=== PATIENT | female | born 1935 | race Caucasian/White ===

== ENCOUNTER 2019-09-11 18:12 | Inpatient (IN) | payer MEDICARE, OTHER ==
[~2019-09-11] VITALS: Ht 170.2 cm; Wt 128.7 kg
--- NOTE | 2019-09-11 19:12 | PHYS DOC ---
Past History Past Medical History: Anxiety, Dementia, Hypothyroid Alcohol Use: None Adult General Chief Complaint Chief Complaint: ALTERED MENTAL STATUS HPI HPI Patient is a 84 year old female who presents with increased altered mental status. Patient has a history of dementia and at baseline is disoriented. states that she has been having bowel and bladder incontinence that has progressively gotten worse. He states that over the last few days she has been eating her own feces. He has not been able to take care of her due to agitation and confusion. He denies any kind of fevers. They were sent here by primary ca re for evaluation and admission. Review of Systems Review of Systems Unable to obtain due to dementia Allergies Allergies Allergies Coded Allergies Type Severity Reaction Last Updated Verified Penicillins Allergy Unknown 09/11/19 Yes Physical Exam Physical Exam General: Awake, alert, NAD. Well Nourished, well hydrated. Cooperative HEENT: Atraumatic, EOMI, PERRL, airway patent, moist oral mucosa Neck: Supple, trachea midline Respiratory: CTA bilaterally, normal effort, no wheezing/crackles CV: RRR, no murmur, cap refill <2 GI: Soft, nondistended, nontender, no masses MSK: No obvious deformities Skin: Warm, dry, intact Neuro: Disoriented, speech limited, sensory and motor grossly intact, no focal deficits Psych: Normal affect, confused Current Patient Data Vital Signs Vital Signs Date Time Temp Pulse Resp B/P (MAP) Pulse Ox O2 Delivery O2 Flow Rate FiO2 09/11/19 18:15 97.6 75 20 159/78 (105) 94 Room Air EKG EKG [] Radiology/Procedures Radiology/Procedures [] Impressions: Altered mental status, dementia Course & Med Decision Making Course & Med Decision Making Pertinent Labs and Imaging studies reviewed. (See chart for details) Patient is an 84-year-old female who presents to the emergency room with increased altered mental status. Patient has known dementia. Differential diagnosis includes worsening of dementia, acute psychosis, infection, electro lyte changes. Basic labs were ordered. Patient was discussed with her primary care physician who will admit her for further evaluation. Dragon Disclaimer Dragon Disclaimer This electronic medical record was generated, in whole or in part, using a voice recognition dictation system. Departure Departure: Impression: Primary Impression: Altered mental status Additional Impression: Dementia Disposition: ADMITTED INPATIENT Condition: STABLE Justification of Admission: Justification of Admission: Justification of Admission Dx: Yes Problem Qualifiers JORGE ALBERTO PAYNE MD Sep 11, 2019 19:12
[2019-09-11 19:26] LABS: BASO % 0 % (0-3); EOS % 0 % (0-3); HEMOGLOBIN 12.3 g/dL (12.0-15.5); LYMPH # 1.2 x10^3/uL (1.0-4.8); LYMPH % 18 % (24-48); MEAN CORPUSCULAR HEMOGLOBIN 30 pg (25-35); MEAN CORPUSCULAR HGB CONC 32 g/dL (31-37); MEAN CORPUSCULAR VOLUME 92 fL (79-100); MONO # 0.4 x10^3/uL (0.0-1.1); MONO % 6 % (0-9); NEUT % 75 % (31-73); PLATELET COUNT 235 x10^3/uL (140-400); RED BLOOD COUNT 4.12 x10^6/uL (3.50-5.40); RED CELL DISTRIBUTION WIDTH 14.5 % (11.5-14.5); WHITE BLOOD COUNT 6.6 x10^3/uL (4.0-11.0)
[2019-09-11 19:32] LABS: CALCIUM 9.2 mg/dL (8.5-10.1); CREATININE 1.5 mg/dL (0.6-1.0); GFR 33.1; POTASSIUM 4.5 mmol/L (3.5-5.1)
[2019-09-11 19:39] LABS: CLARITY,URINE HAZY; COLOR,URINE YELLOW
[2019-09-11 19:40] LABS: BACTERIA,URINE MOD /HPF (0-FEW); BILIRUBIN,URINE NEG (NEG); GLUCOSE,URINE NEG (NEG); HYALINE CASTS, URINE FEW /HPF; NITRITE,URINE NEG (NEG); SQUAMOUS EPITHELIAL CELL,UR MOD /LPF; TOTAL BILIRUBIN 0.2 mg/dL (0.2-1.0); TOTAL PROTEIN 6.1 g/dL (6.4-8.2); WBC,URINE 20-40 /HPF (0-4)
--- NOTE | 2019-09-11 20:30 | NUR ---
The patient, TESSA ARAIZA, 84 y/o, F admitted by VANIA FERRARA MD, was given written information regarding hospital policies, unit procedures and contact persons. Pt assisted onto the unit by EMS personnel and nursing groundskeeper supervisor via [facility]. Pt transferred from rclyo to bed with x3 asssit. Pt's reports that pt is unable to ambulate. reports that pt has become increasingly more confused/agitated of the past couple of days. Pt is confused and impulsive at this time. Pt just smiles at staff when asked assessment questions. Valuables were checked and left in room with pt, four medication bottle and tube of nystatin cream placed in medication room. Bed alarm placed for pt safety.
[2019-09-11 20:36] VITALS: BP 151/68
[2019-09-11] MEDS ORDERED: LEVO112T4 PO (20:40)
[2019-09-11] MEDS ORDERED: TRAZ-120 PO (20:40)
[2019-09-11] MEDS ORDERED: PARO20TA99 PO (20:40)
[2019-09-11] MEDS ORDERED: NYST15CR TP (20:40)
[2019-09-11] MEDS ORDERED: PRED20TA PO (20:40)
[2019-09-11] MEDS: NYSTATIN 100,000 UNIT/GM TOPICAL CREAM 15GM TUBE. TP SCH (21:00)
[2019-09-11] MEDS: traZODone 50 MG TABLET. PO SCH (21:20)
[2019-09-11 23:15] VITALS: BP 144/74
--- NOTE | 2019-09-12 03:37 | NUR ---
Rounds completed @301. This RN went to round on the pts again @324. Pt found laying on the ground next to the bed, with brief stripped off and attempting to pull gown off. When pt saw this RN, she smiled and waved. Pt assessed and no noted injuries. Vitals assessed and stable. Pt assisted back into bed with x4 assist. Bed alarm and chair alarm in place. Addendum: 09/12/19 at 0402 by GOVIND BRINK RN Dr. Ruggiero notified @3057, no new orders at this time.
[2019-09-12 03:39] VITALS: BP 167/75
[2019-09-12] MEDS: LEVOTHYROXINE 112 MCG TABLET PO SCH (05:20)
[2019-09-12 05:59] VITALS: BP 166/66
[2019-09-12] MEDS: NYSTATIN 100,000 UNIT/GM TOPICAL CREAM 15GM TUBE. TP SCH ×3 (09:00→21:00)
[2019-09-12] MEDS ORDERED: predniSONE 20 MG TABLET PO SCH (09:00)
[2019-09-12] MEDS: LACTOBACILLUS RHAMNOSUS GG 1 CAPSULE. PO SCH ×2 (09:10→21:11)
[2019-09-12] MEDS: PARoxetine 20 MG TABLET PO SCH (09:10)
--- NOTE | 2019-09-12 10:27 | RAD ---
EXAM: Chest, 2 views. HISTORY: Mental status changes. COMPARISON: None. FINDINGS: 2 views of the chest are obtained. There is no infiltrate, pleural effusion or pneumothorax. The heart is normal in size. IMPRESSION: No acute pulmonary finding. Electronically signed by: Cathi Livingston MD (09/12/2019 10:24 AM) [id number]
[2019-09-12 11:28] VITALS: BP 135/75
--- NOTE | 2019-09-12 15:40 | NUR ---
Pt has been restless, disorganized, and confused, disrobing, attempting to ambulate unassisted. Pt appears to have expressive aphasia. She will also babble at times. Pt has been pulling at her IV requiring frequent redirection and often staff sitting with her 1:1. She is not able to feed herself however with prompting such as "take a drink." She is able to sip from a straw or be fed with utensils. Dr. Bahman vásquez. new order for ativan 0.5mg q 2 hours PRN. 0.5mg ativan @ . consult Dr. Martinez. SCIENTOLOGIST currently at pts bedside providing comfort, emotional support, safety, and redirection. Addendum: 09/12/19 at 1723 by ROXIE LYNN RN 0.5mg ativan q2 hours prn, 0.5mg ativan q 8 hours scheduled, consult dr. Martinez.
[2019-09-12] MEDS: LORazepam 0.5 MG TABLET PO PRN ×2 (16:05→19:27)
[2019-09-12 16:17] VITALS: BP 174/90
[2019-09-12 19:25] VITALS: BP 144/72
[2019-09-12] MEDS: traZODone 50 MG TABLET. PO SCH (21:11)
[2019-09-12] MEDS: CEFDINIR 300 MG CAPSULE PO SCH (21:11)
[2019-09-12] MEDS: LORazepam 0.5 MG TABLET PO SCH (22:00)
[2019-09-12 22:38] VITALS: BP 170/84
[2019-09-13] MEDS: LORazepam 0.5 MG TABLET PO SCH ×3 (05:54→20:14)
[2019-09-13] MEDS: LEVOTHYROXINE 112 MCG TABLET PO SCH (05:54)
[2019-09-13 06:00] VITALS: BP 168/73
[2019-09-13] MEDS: NYSTATIN 100,000 UNIT/GM TOPICAL CREAM 15GM TUBE. TP SCH ×3 (09:00→20:14)
[2019-09-13] MEDS ORDERED: AZITHROMYCIN 250 MG TABLET. PO SCH (09:00)
--- NOTE | 2019-09-13 10:05 | HP ---
ADMIT DATE: 09/11/2019 HISTORY OF PRESENT ILLNESS: This is a very pleasant 84-year-old female, markedly confused, disoriented. The patient has been tried to be taken care of by her at home. He notes she is having profuse diarrhea. He is unable to take care of her. The patient came in through the Emergency Room, found to have multiple medical issues, possibly a significant bladder infection from her bladder incontinence. She is agitated and confused and has had a change in mental status. As a result of the altered mental status, the patient was admitted to the hospital for further evaluation and treatment. PAST MEDICAL HISTORY: From the chart shows dementia, incontinence, hypothyroidism. MEDICATIONS: From home include Paxil 20, trazodone 50, prednisone 20, thyroid 112, nystatin 15 grams. ALLERGIES: PENICILLIN. SOCIAL HISTORY: From the chart, no smoking, alcohol or drug use. Apparently is a full code at this time. REVIEW OF SYSTEMS: The patient denies any situation as she is not able to answer any questions. PHYSICAL EXAMINATION: GENERAL: This is a pleasant female. She is trying to be cooperative, but seems like she is unable to understand what is going on around her. The patient is arousable, alert. VITAL SIGNS: Blood pressure 150/70, respiratory rate 20, pulse 80, afebrile. HEENT: Her head was atraumatic. Her eyes were PERRL approximately 3-4 mm, reactive to light and accommodation. The mouth shows extremely poor dentition, missing teeth. NECK: Supple. LUNGS: Show diminished breath sounds throughout. CARDIOVASCULAR: Regular sinus rhythm. ABDOMEN: Soft, nontender, protuberant. EXTREMITIES: No clubbing, cyanosis. Trace edema noted. NEUROLOGIC: The patient was alert, but other than that confused, disoriented and unable to answer any questions whatsoever. LABORATORY DATA: Her labs so far, her CBC was normal, 12 and 38. Sodium and potassium 145 and 4.5, 18 and 1.5. Troponins were negative. The patient's albumin slightly low at 3. Urine does show 20-40 white blood cells, those are pending. TSH, ____ vitamin D and B12 are also pending. Right now receiving some IV antibiotic therapy. IMPRESSION: Acute mental status change; dementia, Alzheimer type; essential hypertension; urinary tract infection; poor dentition; urinary incontinence. PLAN: As above. Continue with IV antibiotic therapy. Have the psychiatrist evaluate the patient for possible placement on SNU or social service director for senior living as the is elderly and cannot take care of her. VANIA FERRARA MD DR: RADHA/chris JOB#: [id number] / [id number]
[2019-09-13] MEDS: CEFDINIR 300 MG CAPSULE PO SCH ×2 (10:45→20:14)
[2019-09-13] MEDS: predniSONE 10 MG TABLET PO SCH (10:45)
[2019-09-13] MEDS: LACTOBACILLUS RHAMNOSUS GG 1 CAPSULE. PO SCH ×2 (10:46→20:14)
[2019-09-13] MEDS: PARoxetine 20 MG TABLET PO SCH (10:46)
--- NOTE | 2019-09-13 11:32 | PN ---
DATE: SUBJECTIVE: An 84-year-old female in with change in mental status. She is still very lethargic, not really expressive that much. The patient is pretty much in bed. She has had a couple episodes of falling out of bed, although she is on all necessary precautions for that. SBU has been consulted and I talked to the who would like to get her transferred to a nursing facility and make further evaluation on her as indicated. OBJECTIVE: VITAL SIGNS: Include blood pressure 168/73 (NC), respiratory rate 18, pulse 72, afebrile, room air 97%. GENERAL: The patient is not arousable by any standard this morning. LUNGS: The patient's lungs are diminished, but clear. CARDIOVASCULAR: Regular sinus rhythm. ABDOMEN: Protuberant, soft. EXTREMITIES: Very lax. NEUROLOGIC: The patient is not able to follow commands, would not open her eyes even when gently shaking her either shoulder. LABORATORY DATA: Her labs from yesterday were basically stable including her troponin. Her thyroid is back. Other labs are still pending. Her urine basically showed no growth. We are awaiting transfer possibly to a nursing facility if accepted. IMPRESSION: Altered mental status; dementia, Alzheimer type; essential hypertension; fecal and urinary incontinence. VANIA FERRARA MD DR: RADHA/chris JOB#: [id number] / [id number]
[2019-09-13 15:06] VITALS: BP 127/67
--- NOTE | 2019-09-13 16:34 | NUR ---
PATIENT HAS BEEN CALM AND QUIET MOST OF THE SHIFT, SHE SLEPT THROUGH BREAKFAST TIME, WOKE UP AROUND LUNCH TIME GOT ASSISTED WITH LUNCH AND ADLS X2, TOOK HER MEDICATIONS CRUSHED IN PUDDING. PT COOPERATED WITH ASSESSMENT AND ADLS. PATIENT IS CURRENTLY RESTING COMFORTABLY IN A BED. WILL CONTINUE TO MONITOR.
[2019-09-13 19:00] VITALS: BP 154/71
[2019-09-13] MEDS: traZODone 50 MG TABLET. PO SCH (20:14)
[2019-09-13 23:09] VITALS: BP 165/82
--- NOTE | 2019-09-14 05:30 | NUR ---
Shift Note: Pt is a/o to self only, pt states only few words ("thank you" and "OK"), no signs of pain or n/v at this time, VSS, pt incontinent of bladder (pt changed several times throughout the shift), pt does have a reddened rash over buttocks and groin d/t pt's chronic scratching, pt has been pleasant and cooperative with staff throughout the shift.
[2019-09-14] MEDS: LEVOTHYROXINE 112 MCG TABLET PO SCH (05:55)
[2019-09-14] MEDS: LORazepam 0.5 MG TABLET PO SCH ×3 (05:55→20:44)
[2019-09-14 06:05] VITALS: BP 154/78
[2019-09-14] MEDS: LACTOBACILLUS RHAMNOSUS GG 1 CAPSULE. PO SCH ×2 (07:37→20:44)
[2019-09-14] MEDS: CEFDINIR 300 MG CAPSULE PO SCH ×2 (07:37→20:44)
[2019-09-14] MEDS: NYSTATIN 100,000 UNIT/GM TOPICAL CREAM 15GM TUBE. TP SCH ×3 (07:37→20:45)
[2019-09-14] MEDS: PARoxetine 20 MG TABLET PO SCH (07:37)
[2019-09-14] MEDS: predniSONE 10 MG TABLET PO SCH (07:37)
[2019-09-14] MEDS: LORazepam 0.5 MG TABLET PO PRN ×3 (09:08→23:18)
[2019-09-14] MEDS ORDERED: ACETAMINOPHEN 325 MG TABLET PO PRN (09:15)
--- NOTE | 2019-09-14 09:37 | PN ---
DATE: SUBJECTIVE: This is an 84-year-old female in with change of mental status seems to be doing a little bit better today, a little bit more alert. The patient is receiving physical and occupational therapy. Labs are improving. OBJECTIVE: VITAL SIGNS: Blood pressure is 150/78, respiratory rate 18, pulse 80. GENERAL: Afebrile. The patient is arousable and alert, still having trouble with a little bit of confusion, but overall improved from where she was. LUNGS: Diminished, but clear. CARDIOVASCULAR: Stable. ABDOMEN: Soft. EXTREMITIES: No clubbing, cyanosis, nor edema, receiving PT, OT and assisting them. Otherwise, the patient continues to make good progress and will be monitored. IMPRESSION: Altered mental status; dementia Alzheimer type, stable, improving; essential hypertension. We will continue with PT, OT and possible placement. VANIA FERRARA MD DR: RADHA/chris JOB#: [id number] / [id number]
[2019-09-14 11:18] VITALS: BP 127/72
[2019-09-14 15:08] VITALS: BP 134/79
--- NOTE | 2019-09-14 15:43 | NUR ---
NSG NOTE; HOME MED IN PHARMACY PT'S HOME MEDS WERE MOVED FROM [address] [place] [address]'S MED ROOM TO THE PHARMACY BY THE PHARMACIST NISHI
[2019-09-14 19:47] VITALS: BP 127/67
[2019-09-14] MEDS: traZODone 50 MG TABLET. PO SCH (20:44)
[2019-09-14] MEDS: NYSTATIN TOPICAL POWDER 15GM BOTTLE. TP SCH (21:03)
[2019-09-14 22:21] VITALS: BP 157/69
[2019-09-15] MEDS: LORazepam 0.5 MG TABLET PO SCH ×2 (05:30→13:27)
[2019-09-15] MEDS: LEVOTHYROXINE 112 MCG TABLET PO SCH (05:30)
[2019-09-15 05:52] VITALS: BP 189/73
[2019-09-15] MEDS: CEFDINIR 300 MG CAPSULE PO SCH (07:45)
[2019-09-15] MEDS: LACTOBACILLUS RHAMNOSUS GG 1 CAPSULE. PO SCH (07:45)
[2019-09-15] MEDS: PARoxetine 20 MG TABLET PO SCH (07:45)
[2019-09-15] MEDS: predniSONE 10 MG TABLET PO SCH (07:45)
[2019-09-15] MEDS: NYSTATIN TOPICAL POWDER 15GM BOTTLE. TP SCH (07:46)
[2019-09-15] MEDS: NYSTATIN 100,000 UNIT/GM TOPICAL CREAM 15GM TUBE. TP SCH ×2 (07:47→13:27)
[2019-09-15 11:13] VITALS: BP 91/64
[2019-09-15] MEDS ORDERED: ACET325T9 PO (13:58)
[2019-09-15] MEDS ORDERED: OLAN5TAB7 PO (13:58)
[2019-09-15] MEDS ORDERED: NYST60PO TP (13:58)
[2019-09-15] MEDS ORDERED: CEFD300C PO (13:58)
[2019-09-15] MEDS ORDERED: LORA0.5T21 PO (13:58)
[2019-09-15] MEDS ORDERED: LACT1CAP19 PO (13:58)
--- NOTE | 2019-09-15 14:01 | DISCH ---
DISCHARGE ORDERS DISCHARGE DATE: Sep 15, 2019 CONDITION AT DISCHARGE: Stable Code Status: DNR/DNI SNF STAY <30 DAYS: No HOSPICE: Yes HOSPICE EVALUATE & TREAT: Yes ADMIT TO LTAC: No POST DISCHARGE ORDERS: ACTIVITY ORDERS: No restrictions, Activity as tolerated WEIGHT BEARING STATUS: No restrictions DIET AFTER DISCHARGE: comfort FOLLOW-UP: FFOLLOW-UP WITH: pcp in 7-10 days or sooner if needed DISCHARGE MEDICATIONS: Home Meds Reported Medications Nystatin (NYSTATIN) 15 Gm Cream..g., 1 ARCENIO TP TID for rash, #15 GM 09/11/19 Paroxetine Hcl (PAXIL) 20 Mg Tablet, 20 MG PO DAILY for anxiety, TAB 09/11/19 Trazodone Hcl (TRAZODONE HCL) 50 Mg Tablet, 50 MG PO QHS for insomnia, TAB 09/11/19 Levothyroxine Sodium (LEVOTHYROXINE SODIUM) 112 Mcg Tablet, 112 MCG PO DAILY06 for THYROID SUPPLEMENT, % 09/11/19 Prednisone (PREDNISONE) 20 Mg Tablet, 20 MG PO DAILY for ., TAB 09/11/19 VANIA FERRARA MD Sep 15, 2019 14:01
--- NOTE | 2019-09-15 15:19 | NUR ---
NURSING NOTE DISCHARGE PT DISCHARGED HOME ON HOSPICE VIA EMS ACCOMPANIED BY EMS PERSONNEL. PT NOTIFIED THAT PT LEAVING FACILITY. WRITTEN AND VERBAL DISCHARGE INSTRUCTIONS GIVEN TO PT AND FAMILY, PACKET SENT WITH EMS. PT HAD SHOWER BEFORE LEAVING. NO COMPLICATIONS. ANA BLANCA. Addendum: 09/15/19 at 1620 by EVANGELIST CARRINGTON RN RN PT MEDICATIONS AND FACE MASK MAILED TO PT. GIVEN TO DANA, ADMINISTRATION TO MAIL. ANA BLANCA.
== END 2019-09-15 15:20 | disposition hospice, home (50) | DRG 57 ==
LOC: ER 18:12 → 1 SOUTH 18:50
PROVIDERS: ADMIT Family Medicine; ATTEND Family Medicine
DX: G30.9 Alzheimer's disease, unspecified (principal); N39.0 Urinary tract infection, site not specified; R32 Unspecified urinary incontinence; E03.9 Hypothyroidism, unspecified; Z20.828 Contact with and (suspected) exposure to other viral communicable diseases; W06.XXXA Fall from bed, initial encounter; F02.80 Dementia in other diseases classified elsewhere, unspecified severity, without behavioral disturbance, psychotic disturbance, mood disturbance, and anxiety; I10 Essential (primary) hypertension; F41.9 Anxiety disorder, unspecified; Z88.0 Allergy status to penicillin; Y93.89 Activity, other specified; Y92.89 Other specified places as the place of occurrence of the external cause; Y99.8 Other external cause status; R15.9 Full incontinence of feces
CPT/HCPCS: 36415; 71046; 80053; 81001; 82306; 82607; 83605; 84443; 84484; 85025; 87086; J0696; J7512; 97116; 97530; 99285-25; U0003-CS